=== PATIENT | male | born 1950 | race Caucasian/White ===

== ENCOUNTER 2016-11-28 11:05 | Emergency (ER) | payer MEDICARE ==
[2016-11-28] MEDS ORDERED: AZITHROMYCIN 250 MG TABLET PO ONE (11:37)
[2016-11-28] MEDS ORDERED: AZITHROMYCIN 250 MG TABLET ONE (11:40)
--- NOTE | 2016-11-28 12:03 | ERNOTE ---
Medical Problem HPI - Narrative Date of Service: 11/28/16 - General Chief Complaint: General Assessment Time Seen by Provider: 11/28/16 11:14 Source: patient Exam Limitations: no limitations - Immun/Allergies/Home Medications Immunizations: IMMUNIZATION HX Immunizations Up to Date Yes History of Influenza Vaccine No Hx Pneumococcal Vaccination No Allergies/Adverse Reactions: Allergies No Known Allergies Allergy (Unverified 11/28/16 11:17) Home Medications: HOME MEDICATIONS Cephalexin Monohydrate [Keflex] 500 mg PO QID #40 cap 11/28/16 [Last Taken Unknown] Econazole Nitrate [Spectazole 1%] 1 appl TP BID #15 gm 11/28/16 [Last Taken Unknown] Sulfamethoxazole/Trimethoprim [Bactrim Ds] 1 tab PO BID #20 tab 11/28/16 [Last Taken Unknown] - Pain Score Pain Score #1 Pain Score: 0 - History of Present History Narrative: Patient is a 66 year old male who presents to ED with complaints of "swelling in my right groin area". Patient states he noticed a swelling in his right groin area Wednesday night in the shower. States he pressed up against the shower railing and felt some discomfort. States it is only painful when he touches it. Denies fever, chills, body aches, NVD. Date (Duration): 11/25/16 Timing: constant Modifying Factors - (Worsens): Present: other - palpation Review of Systems - Review of Systems Constitutional: Absent: recent illness, fever, chills, diaphoresis, weakness EYE: Present: no symptoms reported ENT: Present: no symptoms reported Respiratory: Absent: shortness of breath, cough, orthopnea, wheezing Cardiology: Absent: chest pain, palpitations, syncope Gastrointestinal/Abdominal: Absent: nausea, vomiting, diarrhea, abdominal pain, eating less, drinking less Genitourinary: Absent: frequency, pain, dysuria, hematuria, discharge Musculoskeletal: Absent: back pain, muscle pain, muscle stiffness Skin: Present: rash - to groin area Neurological: Present: no symptoms reported Endocrine: Present: no symptoms reported - Patient's Past Medical History Patient History - Medical: No pertinent hx Patient History - Cardiac/Respiratory: No pertinent hx Patient History - Cancer: No Hx of Cancer Patient History - Surgical Procedures: Other Patient History - Other: None - Social History Living Situations: home Psych History: No pertinent hx Smoking Status: Never smoker - Immunizations Immunizations Up to Date: Yes Hx Pneumococcal Vaccination: No History of Influenza Vaccine: No Physical Exam - Physical Exam General Appearance: Present: wd/wn, alert, no apparent distress Eye Exam: Normal inspection: bilateral Ears, Nose, Throat: Present: normal ENT inspection, normal pharynx Neck: Present: normal inspection, nontender Respiratory: Present: no respiratory distress, normal breath sounds, no accessory muscle use, chest nontender, lungs clear Cardiovascular/Chest: Present: regular rate, rhythm, no murmur, normal peripheral pulses Peripheral Pulses: N=norm/S=strong/W=weak/B=bound/A=absent: Radial (R): Normal, Radial (L): Normal Gastrointestinal/Abdominal: Present: normal bowel sounds, nontender, nondistended, soft, mass - right groin abcess above right femoral area. Hard center measuring 8 cm in width with surrounding erythema and warmth Rectal Exam: Present: deferred Male Genitals Exam: Present: normal genitalia, no hernia, inguinal tenderness - right. Absent: scrotum tenderness (R), scrotum tenderness (L), testicular tenderness (R), testicular tenderness (L), urethral discharge Back Exam: Present: normal inspection, normal range of motion, no CVA tenderness , no vertebral tenderness Extremity Exam: Present: normal inspection, non-tender, normal range of motion, no edema Neurological Exam: Present: alert, oriented, normal mood/affect, no motor/ sensory deficits Skin Exam: Present: normal color, warm/dry, skin rash - rash to bilateral groin folds and inner thigh Lymphatic Exam: Present: no adenopathy ED Progress - Vital Signs Patient's Vital Signs:: I have reviewed the patient's vital signs. Vital Signs: Vital Signs 11/28/16 11:12 Temperature 37.0 C Pulse Rate 113 H Respiratory 16 Rate Blood Pressure 151/93 O2 Sat by Pulse 97 Oximetry - Progress/Reassessment Chief Complaint: General Assessment Progress:: Unchanged Progress Note-Subjective: 11/28/16 12:07 Patient verbalized understanding and agreement of treatment plan. States he will comply with antibiotic use and understands need to return to ED if symptoms worsen. Departure - Departure Clinical Impression: Tinea cruris, Inguinal abscess Disposition: Home Follow Up Needed Condition: Good Instructions: Community-Associated MRSA, Jock Itch, [id number] Additional Instructions: Please take antibiotics as directed, do not stop until finished. Please follow up with physician. Return if fever, chills, body aches, nausea or vomiting is noted. Heating pad to area three times a day. Wash area one to two times a day with soap and water, dry bilateral groin folds and apply small amount of cream to groin creases and inner thighs. Please follow up with primary physician, Dr Crum in 1-2 weeks. Call office Wednesday for appointment. Referrals: Jaelyn Crum MD [Staff Physician] - Ronaldo Sandy MD [Associate] - Prescriptions: Cephalexin Monohydrate [Keflex] 500 mg PO QID #40 cap Econazole Nitrate [Spectazole 1%] 1 appl TP BID #15 gm Sulfamethoxazole/Trimethoprim [Bactrim Ds] 1 tab PO BID #20 tab
[2016-11-28 12:19] VITALS: BP 153/94
== END 2016-11-28 12:19 | disposition home or self-care (01) ==
LOC: ER 11:05
DX: B35.6 Tinea cruris (principal); L02.214 Cutaneous abscess of groin